=== PATIENT | female | born 1975 ===

== ENCOUNTER 2017-06-01 22:19 | Emergency (ER) | payer MEDICAID ==
[2017-06-01 22:31] VITALS: RESP 18; O2SAT 100
[2017-06-01] MEDS ORDERED: Lidocaine 5% Patch TD STA (23:44)
[2017-06-01] MEDS ORDERED: Oxycodone/Acetaminophen 5/325 mg Tab PO STA (23:44)
[2017-06-02] MEDS ORDERED: Lidocaine 5% Patch TD ONE (00:29)
[2017-06-02] MEDS ORDERED: Oxycodone/Acetaminophen 5/325 mg Tab ONE (00:29)
[2017-06-02 01:15] VITALS: BP 111/71; PULSE 58; TEMP 97.8
--- NOTE | 2017-06-02 01:23 | C.PDOC ---
History Of Present Illness 42 year old female presents to the ER with a complaint of left sided rib pain that worsens with movement, coughing, and deep inspiration for the past 2 weeks. Patient states she was carrying something at work and hit the object on the wall which caused it to push onto her left rib area. Denies SOB or other injury. Time Seen by Provider: 06/01/17 22:41 Chief Complaint (Nursing): Rib Injury History Per: Patient History/Exam Limitations: no limitations Onset/Duration Of Symptoms: Days Current Symptoms Are (Timing): Still Present Recent travel outside of the [place]: No Past Medical History Reviewed: Historical Data, Nursing Documentation, Vital Signs Vital Signs: Last Vital Signs Temp 97.8 F 06/02/17 01:15 Pulse 58 L 06/02/17 01:15 Resp 18 06/02/17 01:15 BP 111/71 06/02/17 01:15 Pulse Ox 100 06/02/17 01:22 - Medical History PMH: No Chronic Diseases - [facility] Procedures APPLICATION OF SPLINT (07/07/13) Family History: States: Unknown Family Hx - Social History Hx Tobacco Use: Yes (3-6 cigarettes a day) Hx Alcohol Use: No Hx Substance Use: No - Immunization History Hx Tetanus Toxoid Vaccination: No Hx Influenza Vaccination: Yes Hx Pneumococcal Vaccination: No Review Of Systems Respiratory: Negative for: Shortness of Breath Musculoskeletal: Positive for: Other (Left rib pain) Physical Exam - Physical Exam Appears: Non-toxic, No Acute Distress Skin: Normal Color, Warm, Dry Head: Atraumatic, Normacephalic Eye(s): bilateral: Normal Inspection Oral Mucosa: Moist Chest: No Deformity, Tenderness (Lower anterior lateral left ribs) Cardiovascular: Rhythm Regular Respiratory: Normal Breath Sounds, No Rales, No Rhonchi, No Wheezing Gastrointestinal/Abdominal: Soft, No Tenderness Neurological/Psych: Oriented x3, Normal Speech ED Course And Treatment O2 Sat by Pulse Oximetry: 100 (room air) Pulse Ox Interpretation: Normal - Other Rad CXR X-Ray: Viewed By Me, Read By Radiologist Interpretation: EXAM: XR Left Ribs and AP Chest, 3 or More Views. CLINICAL HISTORY: 42 years old, female; Pain; Chest wall pain; Left; Prior surgery; Additional info: Injury/pain. TECHNIQUE: Frontal and oblique views of the left ribs and frontal view of the chest. COMPARISON: No relevant prior studies available. FINDINGS: Lungs: Unremarkable. No consolidation. Pleural space: Unremarkable. No pneumothorax. Heart: Unremarkable. No cardiomegaly. Mediastinum: Unremarkable. Bones/joints: Median sternotomy. No acute fracture. IMPRESSION: No acute findings. Progress Note: CXR ordered, results were negative. Percocet administered and lidoderm patch applied. On reevaluation, patient reports improvement of pain, will discharge with Rx and instructions to follow up with PMD. Disposition - Disposition Referrals: Estephania Landers MD [Staff Provider] - Disposition: HOME/ ROUTINE Disposition Time: 01:20 Condition: STABLE Additional Instructions: Follow up with your PMD within 1-2 days. Return to ED if feel worse. Prescriptions: Lidocaine 5% [Lidoderm] 1 patch TP DAILY #30 patch Ibuprofen [Motrin Tab] 600 mg PO Q8 #30 tab traMADol [Ultram] 50 mg PO Q6 #30 tab Instructions: Rib Contusion (ED) Forms: [employer] (Wallisian) - Clinical Impression Clinical Impression: Contusion of rib on left side - PA / [employer] CONSULTANT / Resident Statement MD/DO has reviewed & agrees with the documentation as recorded. - Scribe Statement The provider has reviewed the documentation as recorded by the Scribe Stevie Shaver All medical record entries made by the Chandraibmontrell were at my direction and personally dictated by me. I have reviewed the chart and agree that the record accurately reflects my personal performance of the history, physical exam, medical decision making, and the department course for this patient. I have also personally directed, reviewed, and agree with the discharge instructions and disposition.
--- NOTE | 2017-06-02 07:43 | RAD ---
PROCEDURE: Radiographs of the Chest and Left Ribs. HISTORY: injury/pain COMPARISON: None available. TECHNIQUE: Frontal radiograph of the chest and multiple oblique radiographs of the left ribs were obtained. FINDINGS: LEFT RIBS: No fracture or focal lesion visualized. LUNGS: Clear. PLEURA: No pneumothorax or pleural fluid. CARDIOVASCULAR: Normal sized heart. No pulmonary vascular congestion. OTHER FINDINGS: None. IMPRESSION: Unremarkable radiographs of the chest and left ribs. No left rib fracture. Concordant preliminary report from [facility], 06/02/2017.
== END 2017-06-02 01:30 | disposition home or self-care (01) ==
LOC: C.ER 22:19
DX: S20.212A Contusion of left front wall of thorax, initial encounter (principal); W22.8XXA Striking against or struck by other objects, initial encounter; Y92.89 Other specified places as the place of occurrence of the external cause; Y99.8 Other external cause status

== ENCOUNTER 2017-11-06 11:45 | Emergency (ER) | payer MEDICAID ==
[2017-11-06 11:48] VITALS: O2SAT 99; BMI 25.4
[2017-11-06] MEDS ORDERED: Sodium Chloride 0.9% 1,000 ML IV STA (13:12)
[2017-11-06] MEDS ORDERED: Sodium Chloride 0.9% 1,000 ML ONE (13:25)
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
[2017-11-06 15:18] VITALS: BP 102/68; PULSE 60; RESP 16; TEMP 98
[2017-11-06 15:55] LABS: BASO % 0.8 % (0.0-2.0); EOS # 0.2 K/uL (0.0-0.7); EOS % 3.5 % (0.0-4.0); HEMOGLOBIN 12.2 g/dL (11.0-16.0); LYMPH # 0.9 K/uL (1.0-4.3); LYMPH % 17.7 % (20.0-40.0); MEAN CELL VOLUME 83.2 fL (81.0-99.0); MEAN CORPUSCULAR HEMOGLOBIN 27.8 pg (27.0-31.0); MEAN CORPUSCULAR HGB CONC 33.4 g/dL (33.0-37.0); MEAN PLATELET VOLUME 9.5 fL (7.2-11.7); MONO # 0.3 K/uL (0.0-0.8); MONO % 6.7 % (0.0-10.0); NEUT # 3.7 K/uL (1.8-7.0); NEUT % 71.3 % (50.0-75.0); RBC 4.39 Mil/uL (3.80-5.20); RED CELL DISTRIBUTION WIDTH 13.8 % (11.5-14.5); WHITE BLOOD COUNT 5.2 K/uL (4.8-10.8)
[2017-11-06 15:58] LABS: HCG,QUALITATIVE URINE NEGATIVE (NEGATIVE)
[2017-11-06 16:04] LABS: SQUAMOUS EPITHIAL 1 /hpf (0-5); URINE BILIRUBIN NEGATIVE (NEGATIVE); URINE BLOOD NEGATIVE (NEGATIVE); URINE CLARITY Clear (Clear); URINE COLOR Yellow (YELLOW); URINE GLUCOSE (UA) NORMAL (Normal); URINE LEUKOCYTE ESTERASE NEG Leu/uL (Negative); URINE PROTEIN NEGATIVE (NEGATIVE); URINE UROBILINOGEN NORMAL mg/dL (0.2-1.0)
--- NOTE | 2017-11-06 16:06 | RAD ---
HISTORY: vertigo COMPARISON: 06/02/2017. FINDINGS: LUNGS: The lungs are well inflated and clear. PLEURA: No significant pleural effusion identified, no pneumothorax apparent. CARDIOVASCULAR: Normal. OSSEOUS STRUCTURES: No significant abnormalities. VISUALIZED UPPER ABDOMEN: Normal. OTHER FINDINGS: None. IMPRESSION: No active pulmonary disease.
[2017-11-06 16:12] LABS: ALB/GLOB RATIO 1.2 (1.0-2.1); ALBUMIN 4.1 g/dL (3.5-5.0); ALT/SGPT 25 U/L (9-52); AST/SGOT 24 U/L (14-36); BLOOD UREA NITROGEN 19 mg/dL (7-17); CALCIUM 9.3 mg/dl (8.6-10.4); GFR AFRICAN-AMERICAN > 60; GFR NON-AFRICAN AMERICAN > 60; LIPASE 38 U/L (23-300)
[2017-11-06 16:23] LABS: CK-MB 0.88 ng/mL (0.0-3.38)
--- NOTE | 2017-11-06 16:35 | CT ---
PROCEDURE: CT HEAD WITHOUT CONTRAST. HISTORY: Headache. Intractable vertigo. COMPARISON: None available. TECHNIQUE: Axial computed tomography images were obtained through the head/brain without intravenous contrast. Radiation dose: Total exam DLP = 722.68 mGy-cm. This CT exam was performed using one or more of the following dose reduction techniques: Automated exposure control, adjustment of the mA and/or kV according to patient size, and/or use of iterative reconstruction technique. FINDINGS: HEMORRHAGE: No intracranial hemorrhage. BRAIN: No mass effect or edema. No atrophy or chronic microvascular ischemic changes. VENTRICLES: Unremarkable. No hydrocephalus. CALVARIUM: Unremarkable. PARANASAL SINUSES: Frontal sinuses are underpneumatized/ -hypoplastic. Remaining visualized paranasal sinuses are otherwise relatively well-developed. No evidence of acute sinusitis. MASTOID AIR CELLS: Mastoid air complexes well-developed and currently well-aerated. OTHER FINDINGS: None. IMPRESSION: No acute intracranial hemorrhage.
--- NOTE | 2017-11-09 14:47 | CARD ---
APPROVED REPORT EKG Measurement Heart [id number] <Conclusion> Normal sinus rhythm Normal ECG
== END 2017-11-06 17:06 | disposition home or self-care (01) ==
LOC: C.ER 11:45
DX: H81.10 Benign paroxysmal vertigo, unspecified ear (principal)
CPT/HCPCS: 70450; 71045; 80053; 81001; 82550; 82553; 82948; 83690; 84484; 84703; 85025; 87086; 93005; 96361; 96374; 96375; 99285; J1885; J2765; J7030

== ENCOUNTER 2017-12-24 11:46 | Emergency (ER) | payer MEDICAID ==
[2017-12-24 11:46] VITALS: BMI 25.4
[2017-12-24 12:14] VITALS: RESP 18; O2SAT 100
--- NOTE | 2017-12-24 12:55 | C.PDOC ---
History Of Present Illness 42 yo female c/o left heel pain for 1 month. PT notes "it hurts all the time." Worse after work, notes she stands mostly at work. Denies trauma, change in sensation, lower leg swelling or cramping. Time Seen by Provider: 12/24/17 12:26 Chief Complaint (Nursing): Lower Extremity Problem/Injury History Per: Patient History/Exam Limitations: no limitations Onset/Duration Of Symptoms: Days (1 month) Past Medical History Vital Signs: Last Vital Signs Temp 98.8 F 12/24/17 12:00 Pulse 57 L 12/24/17 12:00 Resp 18 12/24/17 12:00 BP 113/70 12/24/17 12:00 Pulse Ox 100 12/24/17 12:56 - [facility] Procedures APPLICATION OF SPLINT (07/07/13) Family History: States: Unknown Family Hx - Social History Hx Tobacco Use: Yes (3-6 cigarettes a day) Hx Alcohol Use: No Hx Substance Use: No - Immunization History Hx Tetanus Toxoid Vaccination: No Hx Influenza Vaccination: Yes Hx Pneumococcal Vaccination: No Review Of Systems Except As Marked, All Systems Reviewed And Found Negative. Musculoskeletal: Positive for: Foot Pain Physical Exam - Physical Exam Appears: Well, Non-toxic, No Acute Distress Skin: Normal Color, Warm, Dry Head: Atraumatic, Normacephalic Eye(s): bilateral: Normal Inspection, EOMI Nose: Normal Oral Mucosa: Moist Neck: Normal, Normal ROM, Supple Chest: Symmetrical Respiratory: No Accessory Muscle Use Extremity: Normal ROM, Tenderness ((+) tenderness to the left heel and arch of left foot. No erythema, increased warmth or swelling. ), No Pedal Edema, No Calf Tenderness, Capillary Refill (< 2 sec) Extremity: Bilateral: Atraumatic, Normal Color And Temperature, Normal ROM Pulses: Left Dorsalis Pedis: Normal, Right Dorsalis Pedis: Normal Neurological/Psych: Oriented x3, Normal Speech, Normal Motor, Normal Sensation Gait: Steady ED Course And Treatment O2 Sat by Pulse Oximetry: 100 Progress Note: Pt was instructed change foot support, wear splints, and follow up with podiatry in 1-2 days. Disposition - Disposition Referrals: Walter Huang DPM [Staff Provider] - Disposition: HOME/ ROUTINE Disposition Time: 12:53 Condition: STABLE Additional Instructions: Change your shoes and add arch support. Take antiinflammatory pain medication such as motrin or naprosyn. 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 Prescriptions: Naproxen [Naprosyn] 1 tab PO BID PRN #20 tab PRN Reason: Pain Instructions: Heel Pain (Caused by Plantar Fasciitis) (DC) Forms: [facility] (Romanian) - Clinical Impression Clinical Impression: Plantar fasciitis of left foot
[2017-12-24 13:07] VITALS: BP 110/75; PULSE 55; TEMP 98.9
--- NOTE | 2017-12-24 14:31 | RAD ---
Date of service: 12/24/2017 PROCEDURE: Left Foot Radiographs. HISTORY: pain COMPARISON: None. FINDINGS: BONES: Normal. No fracture. There is a small enthesophyte seen arising from the plantar surface of the calcaneus JOINTS: Normal. SOFT TISSUES: Normal. OTHER FINDINGS: None. IMPRESSION: No evidence of acute displaced fracture nor dislocation.
== END 2017-12-24 13:00 | disposition home or self-care (01) ==
LOC: C.ER 11:46
DX: M72.2 Plantar fascial fibromatosis (principal)